=== PATIENT | female | born 1955 | race Caucasian/White ===

== ENCOUNTER 2017-02-24 14:20 | Emergency (ER) | payer OTHER ==
[2017-02-24 15:13] LABS: HEMOGLOBIN 13.2 gm/dl (12.3-15.3); RED BLOOD COUNT 4.28 M/UL (4.00-5.10); WHITE BLOOD COUNT 6.9 K/UL (4.5-11.0)
[2017-02-24 15:28] LABS: BUN/CREATININE RATIO 16 (0-10)
[2017-07-03] MEDS ORDERED: ASPIRIN EC81 MG PO (05:29)
[2017-07-03] MEDS ORDERED: CLARITIN10 MG PO (05:30)
[2017-07-03] MEDS ORDERED: LASIX20 MG PO (05:30)
[2017-07-03] MEDS ORDERED: COLACE 100MG C100 MG PO (05:30)
[2017-07-03] MEDS ORDERED: LIPITOR TAB 2020 MG PO (05:31)
[2017-07-03] MEDS ORDERED: OMEPRAZOLE20 M1 PO (05:31)
[2017-07-03] MEDS ORDERED: NITROSTAT0.4 MG SL (05:32)
[2017-07-03] MEDS ORDERED: FLONASE 0.05% N16 GM INH (05:32)
[2017-07-05] MEDS ORDERED: LOPRESSOR 25 MG25 MG PO (14:33)
[2017-07-05] MEDS ORDERED: SENOKOT-S TABL1 EACH PO (14:33)
[2017-07-05] MEDS ORDERED: TRULANCE PO (14:36)
[2017-07-05] MEDS ORDERED: XARELTO20 MG PO (14:37)
[2017-07-05] MEDS ORDERED: VERAMYST (14:37)
[2017-07-05] MEDS ORDERED: CEFUROXIME250 MG PO (14:40)
== END 2017-02-24 18:35 | disposition home or self-care (01) ==
LOC: ER1 14:20
PROVIDERS: Emergency Medicine
DX: R10.9 Unspecified abdominal pain (principal); R11.0 Nausea; I10 Essential (primary) hypertension; I51.9 Heart disease, unspecified; Z88.1 Allergy status to other antibiotic agents; Z79.82 Long term (current) use of aspirin; Z79.899 Other long term (current) drug therapy
CPT/HCPCS: 36415; 71010; 80053; 81001; 82150; 82550; 82553; 83605; 83690; 83874; 83880; 84484; 85025; 87040; 87086; 93005; 96372; 96374; 96375; 99284; J1630; J2270; J2405; J7050; Q9963

== ENCOUNTER 2020-12-23 15:38 | Emergency (ER) | payer MEDICARE, OTHER ==
[~2020-12-23 15:38] MED LIST: ALLERGY EYE DRO10 M1 EYEBOTH; AMLODIPINE BESY10 MG PO; ASPIRIN EC81 MG PO; ATORVASTATIN CA20 MG PO; BENTYL 20MG TAB20 MG PO; BENZONATATE200 MG PO; BETAPACE80 MG PO; CEFUROXIME250 MG PO; CENTRUM SILVER1 EAC4 PO; CLARITIN10 MG PO; COLACE 100MG C100 MG PO; CYCLOBENZAPRINE10 MG PO; ECOTRIN81 MG PO; ENULOSE10 GM/15 M PO; FLAGYL500 MG PO; FLONASE 0.05% N16 GM INH; HYDROCHLOROTHIA25 MG PO; IBU600 MG PO; KEFLEX500 MG PO; LASIX20 MG PO; LEVAQUIN500 MG PO; LINZESS145 MCG PO; LINZESS290 MCG PO; LIPITOR TAB 2020 MG PO; LOPRESSOR 25 MG25 MG PO; NABUMETONE500 MG PO; NITROSTAT0.4 MG SL; NORVASC 5 MG TAB5 MG PO; OMEPRAZOLE20 M1 PO; PERCOCET 5-3251 EACH PO; PLAVIX 75 MG TA75 MG PO; PRAVACHOL20 MG PO; PROTONIX40 MG PO; SALINE NOSE SPR45 ML INH; SENOKOT-S TABL1 EACH PO; TESSALON PERLE100 MG PO; TRULANCE PO; TYLENOL 500 MG500 MG PO; VERAMYST; VITAMIN B-122000 MC1 PO; VITAMIN C 500500 MG PO; XARELTO20 MG PO; ZESTRIL10 MG PO; ZETIA10 MG PO; ZOFRAN ODT 4 MG4 MG PO; ZYRTEC10 M3 PO
[2020-12-23 17:37] LABS: HEMOGLOBIN 13.6 gm/dl (12.3-15.3); RED BLOOD COUNT 4.21 M/UL (4.00-5.10); WHITE BLOOD COUNT 7.6 K/UL (4.5-11.0)
[2020-12-23 17:57] LABS: BUN/CREATININE RATIO 24 (0-10)
== END 2020-12-23 19:05 | disposition home or self-care (01) ==
LOC: ER1 15:38
DX: R07.9 Chest pain, unspecified (principal); I25.10 Atherosclerotic heart disease of native coronary artery without angina pectoris; I48.91 Unspecified atrial fibrillation; I50.9 Heart failure, unspecified; Z79.01 Long term (current) use of anticoagulants; Z95.1 Presence of aortocoronary bypass graft; Z79.82 Long term (current) use of aspirin; Z79.899 Other long term (current) drug therapy; Z88.1 Allergy status to other antibiotic agents; Z88.2 Allergy status to sulfonamides; Z88.6 Allergy status to analgesic agent
CPT/HCPCS: 71045; 80053; 82550; 82553; 83874; 84484; 85025; 93005; 99285

== ENCOUNTER → 2021-02-06 | Outpatient (CLI) | payer MEDICARE, OTHER | LOC: KOH-I 13:33 | DX: R05 Cough (principal); R07.82 Intercostal pain; M43.8X9 Other specified deforming dorsopathies, site unspecified | CPT/HCPCS: 71045; 71111 ==

== ENCOUNTER 2021-06-15 18:36 | Emergency (ER) | payer MEDICARE, OTHER | END 2021-06-16 00:55 | disposition left against medical advice (07) | LOC: ER1 18:36 | DX: Z53.21 Procedure and treatment not carried out due to patient leaving prior to being seen by health care provider (principal) ==

== ENCOUNTER → 2021-09-24 | Outpatient (CLI) | payer MEDICARE, OTHER ==
[~2021-09-24] MED LIST changes: +CRESTOR10 MG PO; +LISINOPRIL10 MG PO; -ZESTRIL10 MG PO
[2021-09-24 10:26] LABS: HEMOGLOBIN 13.4 gm/dl (12.3-15.3); RED BLOOD COUNT 4.15 M/UL (4.00-5.10); WHITE BLOOD COUNT 6.6 K/UL (4.5-11.0)
[2021-09-24 10:55] LABS: BUN/CREATININE RATIO 22 (0-10)
== END ==
LOC: OPSV2 09:30
PROVIDERS: Orthopaedic Surgery
DX: Z01.812 Encounter for preprocedural laboratory examination (principal); S83.241A Other tear of medial meniscus, current injury, right knee, initial encounter
CPT/HCPCS: 36415; 80048; 85025

== ENCOUNTER → 2021-10-01 | Day surgery (SDC) | payer MEDICARE, OTHER ==
[~2021-10-01] VITALS: Ht 175.3 cm; Wt 95.7 kg
[~2021-10-01] MED LIST changes: +HYDROCODON-ACE1 EAC2 PO
== END | disposition home or self-care (01) ==
LOC: OR 05:10
DX: S83.231A Complex tear of medial meniscus, current injury, right knee, initial encounter (principal); M17.11 Unilateral primary osteoarthritis, right knee; M94.261 Chondromalacia, right knee; S83.281A Other tear of lateral meniscus, current injury, right knee, initial encounter; I10 Essential (primary) hypertension; E78.5 Hyperlipidemia, unspecified; K21.9 Gastro-esophageal reflux disease without esophagitis; I48.91 Unspecified atrial fibrillation; X58.XXXA Exposure to other specified factors, initial encounter; Z85.828 Personal history of other malignant neoplasm of skin; Z95.1 Presence of aortocoronary bypass graft; Z90.710 Acquired absence of both cervix and uterus; Z90.49 Acquired absence of other specified parts of digestive tract; Z79.01 Long term (current) use of anticoagulants; Z79.899 Other long term (current) drug therapy; Z88.8 Allergy status to other drugs, medicaments and biological substances; Z88.1 Allergy status to other antibiotic agents; Z88.2 Allergy status to sulfonamides
CPT/HCPCS: 93005; J0171; J0690; J1100; J2001; J2250; J2405; J2704; J2765; J3010; J7120

== ENCOUNTER → 2021-12-13 | Outpatient (CLI) | payer MEDICARE, OTHER | LOC: KOH-I 12-09 10:30 | DX: J32.9 Chronic sinusitis, unspecified (principal) | CPT/HCPCS: 70486 ==

== ENCOUNTER → 2022-01-30 | Day surgery (SDC) | payer MEDICARE, OTHER | END | disposition home or self-care (01) | LOC: OR 06:34 | DX: K63.5 Polyp of colon (principal); K59.09 Other constipation; K56.50 Intestinal adhesions [bands], unspecified as to partial versus complete obstruction; K57.30 Diverticulosis of large intestine without perforation or abscess without bleeding; K64.0 First degree hemorrhoids; I25.10 Atherosclerotic heart disease of native coronary artery without angina pectoris; I11.0 Hypertensive heart disease with heart failure; I50.9 Heart failure, unspecified; I48.91 Unspecified atrial fibrillation; K21.9 Gastro-esophageal reflux disease without esophagitis; E78.5 Hyperlipidemia, unspecified; Z86.010 Personal history of colon polyps; Z90.710 Acquired absence of both cervix and uterus; Z95.1 Presence of aortocoronary bypass graft; Z79.01 Long term (current) use of anticoagulants; Z79.899 Other long term (current) drug therapy; Z88.1 Allergy status to other antibiotic agents; Z88.2 Allergy status to sulfonamides; Z88.8 Allergy status to other drugs, medicaments and biological substances | CPT/HCPCS: J2704; J7040 ==

== ENCOUNTER → 2022-02-13 | Outpatient (CLI) | payer MEDICARE, OTHER | LOC: KOH-I 15:52 | DX: M25.522 Pain in left elbow (principal); M70.22 Olecranon bursitis, left elbow; Z88.1 Allergy status to other antibiotic agents; Z88.2 Allergy status to sulfonamides | CPT/HCPCS: 73080 ==

== ENCOUNTER 2022-03-16 09:11 | Emergency (ER) | payer MEDICARE, OTHER ==
[2022-03-16 09:29] LABS: RED BLOOD COUNT 4.35 M/UL (4.00-5.10)
[2022-03-16 10:15] LABS: BUN/CREATININE RATIO 17 (0-10)
[2022-03-16] MEDS ORDERED: ZOFRAN 4 MG TAB4 MG PO (11:39)
== END 2022-03-16 11:53 | disposition home or self-care (01) ==
LOC: ER1 09:11
PROVIDERS: Emergency Medicine
DX: R10.9 Unspecified abdominal pain (principal); R10.817 Generalized abdominal tenderness; R19.7 Diarrhea, unspecified; I25.10 Atherosclerotic heart disease of native coronary artery without angina pectoris; I10 Essential (primary) hypertension; Z95.1 Presence of aortocoronary bypass graft
CPT/HCPCS: 80053; 82550; 82553; 83605; 83690; 84484; 85025; 93005; 96374; 96375; 99284; J2270; J2405; Q9967

== ENCOUNTER → 2022-03-31 | Outpatient (CLI) | payer MEDICARE, OTHER ==
[~2022-03-31] MED LIST changes: +ZOFRAN 4 MG TAB4 MG PO
== END ==
LOC: US 11:48
DX: R33.9 Retention of urine, unspecified (principal)

== ENCOUNTER → 2022-04-22 | Outpatient (CLI) | payer MEDICARE, OTHER | LOC: KOH-I 15:18 | DX: M79.672 Pain in left foot (principal) | CPT/HCPCS: 73630 ==

== ENCOUNTER 2022-06-01 20:59 | Emergency (ER) | payer MEDICARE, OTHER ==
[2022-06-01 21:34] LABS: HEMOGLOBIN 13.1 gm/dl (12.3-15.3); RED BLOOD COUNT 4.1 M/UL (4.00-5.10); WHITE BLOOD COUNT 8.8 K/UL (4.5-11.0)
[2022-06-01 21:48] LABS: BUN/CREATININE RATIO 21 (0-10)
[2022-06-02] MEDS ORDERED: ZOFRAN 4 MG TAB4 MG PO (19:44)
[2022-06-02] MEDS ORDERED: AMOX TR-K CLV1 EAC4 PO (19:44)
== END 2022-06-02 00:30 | disposition left against medical advice (07) ==
LOC: ER1 20:59
PROVIDERS: Student in an Organized Health Care Education/Training Program
DX: R10.9 Unspecified abdominal pain (principal); Z88.2 Allergy status to sulfonamides
CPT/HCPCS: 80053; 81001; 83690; 85025; 96374; 96375; 99281; 99284; C9113; J2405; Q9967

== ENCOUNTER 2022-07-19 13:51 | Observation (INO) | payer MEDICARE, OTHER ==
[~2022-07-19] VITALS: Ht 175.3 cm; Wt 94.3 kg
[~2022-07-19 13:51] MED LIST changes: +AMOX TR-K CLV1 EAC4 PO; -CRESTOR10 MG PO; +CRESTOR20 MG PO; -LISINOPRIL10 MG PO; +LISINOPRIL5 MG PO
[2022-07-19 14:43] LABS: HEMOGLOBIN 12.6 gm/dl (12.3-15.3); RED BLOOD COUNT 3.96 M/UL (4.00-5.10); WHITE BLOOD COUNT 5.7 K/UL (4.5-11.0)
[2022-07-19 15:15] LABS: BUN/CREATININE RATIO 25 (0-10)
[2022-07-19] MEDS ORDERED: FLONASE 0.05% N16 GM (18:02)
[2022-07-19] MEDS ORDERED: LACTULOSE10 GM/15 M PO (18:03)
[2022-07-19] MEDS ORDERED: CENTRUM SILVER1 EAC4 PO (18:04)
[2022-07-20 04:02] LABS: HEMOGLOBIN 13.8 gm/dl (12.3-15.3); RED BLOOD COUNT 4.17 M/UL (4.00-5.10); WHITE BLOOD COUNT 4.9 K/UL (4.5-11.0)
[2022-07-20 04:03] LABS: BUN/CREATININE RATIO 24 (0-10)
== END 2022-07-20 10:55 | disposition left against medical advice (07) ==
LOC: ER1 13:51 → M/S 16:21 → CDU 16:21 → M/S 19:25
PROVIDERS: Emergency Medicine; Physician Assistant; ADMIT Internal Medicine
DX: R07.89 Other chest pain (principal); I49.3 Ventricular premature depolarization; J18.9 Pneumonia, unspecified organism; F41.9 Anxiety disorder, unspecified; I10 Essential (primary) hypertension; I48.0 Paroxysmal atrial fibrillation; I25.10 Atherosclerotic heart disease of native coronary artery without angina pectoris; I25.2 Old myocardial infarction; E78.5 Hyperlipidemia, unspecified; K21.9 Gastro-esophageal reflux disease without esophagitis; K57.90 Diverticulosis of intestine, part unspecified, without perforation or abscess without bleeding; Z20.822 Contact with and (suspected) exposure to COVID-19; Z53.29 Procedure and treatment not carried out because of patient's decision for other reasons; Z95.1 Presence of aortocoronary bypass graft; Z79.01 Long term (current) use of anticoagulants; Z88.1 Allergy status to other antibiotic agents; Z88.2 Allergy status to sulfonamides; Z87.891 Personal history of nicotine dependence; Z85.828 Personal history of other malignant neoplasm of skin
CPT/HCPCS: 36415; 71045; 80053; 82550; 82553; 83735; 84484; 85025; 87040; 93005; 96374; 99285; G0378; J0692; J0696; U0002